=== PATIENT | female | born 2000 | race Caucasian/White ===

== ENCOUNTER 2024-01-15 21:19 | Emergency (ER) | payer SELFPAY ==
[2024-01-15 21:23] VITALS: BP 117/75; PULSE 84; RESP 16; TEMP 36.6; O2SAT 100
[2024-01-15 22:10] LABS: HCG Qualitative Urine. Negative (Negative)
[2024-01-15 22:22] LABS: Add Urine Microscopic? YES; Bilirubin Urine Neg (Negative); Blood Urine 2+ (Negative); Glucose Urine UA Norm (Normal); Ketones Urine Negative (Negative); Leukocyte Esterase Urine Trace (Negative); Nitrate Urine Negative (Negative); Protein Urine Neg (Negative); Specific Gravity, Urine 1.005 (1.005-1.030); Urine Appearance Clear (CLEAR); Urine Color Yellow (Yellow); Urobilinogen Urine Neg (Negative); pH Urine 7 (5-7)
[2024-01-15 22:23] LABS: Add Urine Culture? No; Bacteria Urine TRACE /hpf; RBC Urine 0-4 /hpf (0-2); WBC Urine 0-4 /hpf (0-5)
[2024-01-15 22:54] VITALS: BP 112/61
--- NOTE | 2024-01-15 23:02 | ED_ITS ---
Documented by User: RON Combs 01/15/24 23:09 HPI - Female Genitourinary General: Chief complaint: Urogenital-Female Stated complaint: Possible UTI Time Seen by Provider: 01/15/24 22:49 Source: patient Mode of arrival: ambulatory Limitations: no limitations History of Present Illness: Patient is a 23-year-old female presenting to the emergency department comp laining of dysuria for the past couple weeks. She notes that her dysuria has steadily worsened, and she is now noting some hematuria. She states she recently took her friend to the hospital for symptoms of UTI, and now she is having identical symptoms. She is denying any fevers, abdominal pain, nausea or vomiting, any other symptoms. She denies possibility of . MD elicited complaint: dysuria Onset (ago): week(s) Consistency: progressively worsening Vaginal discharge: none Vaginal bleeding: none Associated symptoms: Deny abdominal pain, headache(s) or nausea Date of Last Menstrual Period: 01/15/24 Review of Systems General: Reports: 10 or more systems reviewed and unremarkable except in HPI and below Const: Denies: fever(s), chills, change in appetite, change in weight or diaphoresis ENMT: Denies: throat pain or hoarseness Card: Denies: chest pain, palpitations or lightheadedness Resp: Denies: dyspnea, productive cough or wheezing GI: Denies: abdominal pain, nausea, vomiting, diarrhea, constipation, bloating, change in stool character or hematochezia : Reports: dysuria and hematuria; Denies: flank pain, difficulty voiding, urinary frequency or urinary urgency Musc: Denies: neck pain or back pain Skin/Breast: Denies: rash or new lesions Neuro: Denies: headache(s) or dizziness PFS ED PFSH: Family History Denies family history of Colon cancer Ovarian cancer Diabetes Heart disease Hyperlipidemia Breast cancer Hypertension Uterine cancer Thyroid disease Stroke Female Reproductive History: Date of last menstrual period: 01/15/24 Physical Exam Const: COMMON NORMALS: no acute distress, average body habitus, patient oriented x3, no limitations, healthy appearing, alert and well nourished GENERAL APPEARANCE: cooperative and comfortable ORIENTATION/CONSCIOUSNESS: Yes awake HENMT: COMMON NORMALS: normocephalic, atraumatic, hearing grossly normal bilaterally, external ears normal, Normal external nose present, Normal nasal mucous membranes and turbinates present and moist oral mucous membranes HEAD & SCALP: normocephalic and atraumatic NOSE: Normal external nose present and Normal nasal mucous membranes and turbinates present EXTERNAL EAR: Yes external ears normal Eye: COMMON NORMALS: Equal, round and reactive pupils present, EOMs intact bilaterally, conjunctivae normal and normal visual carrera by confrontation CONJUNCTIVA: Yes conjunctivae normal PUPIL: Yes Equal, round and reactive pupils present Neck/C-Spine: COMMON NORMALS: full ROM, supple, no meningeal signs and no JVD Resp: COMMON NORMALS: normal respiratory effort, No retractions, No use of accessory muscles and clear to auscultation bilaterally AUSCULTATION: clear to auscultation bilaterally, no crackles, no rales, no rhonchi and no wheezes Cardio: COMMON NORMALS: no JVD, regular rate, regular rhythm, S1 normal heart sound present, S2 normal heart sound present, No gallops present (Cardio), No clicks present (Cardio), No murmurs present (Cardio), No rub (Cardio) and Peripheral pulses 2+ throughout RATE: regular rate RHYTHM: regular rhythm HEART SOUNDS: S1 normal heart sound present and S2 normal heart sound present PERIPHERAL PULSES: Peripheral pulses 2+ throughout GI: COMMON NORMALS: Normal to inspection, nondistended, normoactive bowel sounds present, Soft to palpation, non-tender, No hepatosplenomegaly present and no masses AUSCULTATION: Yes normoactive bowel sounds PALPATION: Yes Soft to palpation, No Guarding due to palpation present (GI), No Rigid due to palpation and Yes No hepatosplenomegaly present RECTAL EXAM: deferred : COMMON NORMALS: Yes no CVA tenderness BLADDER/KIDNEY EXAM: Yes no CVA tenderness Back/Pelvis: COMMON NORMALS: no CVA tenderness Extremity: COMMON NORMALS: normal to inspection and full ROM Neuro: COMMON NORMALS: patient oriented x3, moves all extremities, no focal motor deficits and no sensory deficits noted SENSORIUM/ORIENTATION: Yes alert MENINGEAL SIGNS: Yes no meningeal signs Psych: COMMON NORMALS: mental status grossly normal, cooperative and speech normal SPEECH: Yes normal speech Skin: COMMON NORMALS: no rashes or lesions noted GENERAL SKIN EXAM: no rashes or lesions noted Course Vital Signs: Vital signs: Vital Signs Temperature 97.8 F 01/15/24 21:23 Pulse Rate 84 01/15/24 21:23 Respiratory Rate 14 01/15/24 23:10 Blood Pressure 115/84 01/15/24 23:10 Pulse Oximetry 100 01/15/24 21:23 Oxygen Delivery Me thod Room Air 01/15/24 21:23 MDM - Female Medical Decision Making Patient seen and evaluated for symptoms of urinary tract infection for the past couple weeks. Patient's vitals normal on arrival and remained stable throughout her ED course. Examination unremarkable. UA obtained did show evidence of a early urinary tract infection, possibly a hemorrhagic cystitis. I will treat this accordingly and return precautions were given. Patient agrees with plan. Lab Data Laboratory Results HCG, Qual Negative (Negative) 01/15/24 21:39 Urine Color Yellow (Yellow) 01/15/24 21:39 Urine Appearance Clear (CLEAR) 01/15/24 21:39 Urine pH 7 (5-7) 01/15/24 21:39 Ur Specific [place] 1.005 (1.005-1.030) 01/15/24 21:39 Urine Protein Neg (Negative) 01/15/24 21:39 Urine Glucose (UA) Norm (Normal) 01/15/24 21:39 Urine Ketones Negative (Negative) 01/15/24 21:39 Urine Blood 2+ (Negative) H 01/15/24 21:39 Urine Nitrate Negative (Negative) 01/15/24 21:39 Urine Bilirubin Neg (Negative) 01/15/24 21:39 Urine Urobilinogen Neg mg/dL (Negative) 01/15/24 21:39 Ur Leukocyte Esterase Trace (Negative) H 01/15/24 21:39 Urine RBC 0-4 /hpf (0-2) H 01/15/24 21:39 Urine WBC 0-4 /hpf (0-5) H 01/15/24 21:39 Ur Squamous Epith Cells 5-10 /hpf (0-5) H 01/15/24 21:39 Amorphous Sediment Not Reportable 01/15/24 21:39 Urine Bacteria Trace /hpf (NONE) 01/15/24 21:39 No radiology studies performed this visit Discharge Plan Discharge Patient Disposition: Home Clinical Impression: Urinary tract infection Qualifiers: Urinary tract infection type: acute cystitis Hematuria presence: with hematuria Qualified Code(s): N30.01 - Acute cystitis with hematuria Condition: Stable Prescriptions: New cefdinir 300 mg capsule 300 mg PO BID 10 Days Qty: 20 0RF No Action norethindrone-e.estradiol-iron [Loestrin Fe 10/21 (28-Day)] 1 mg-20 mcg (21)/75 mg (7) tablet 1 tab PO DAILY Qty: 84 0RF Discharge Orders: Discharge ED (Routine); Ordered 01/15/24 Ordered By: Matthew Juarez Referrals: Karol Bergeron MD [Family Provider] - Discharge Diet: Usual diet Discharge Activity: Resume usual activity Patient Instructions: Urinary Tract Infection in Women (ED) Activity Restrictions/Additional Instructions: Cefdinir as prescribed. Plenty of fluids. Please follow-up with primary care as needed. Return with any new or worsening symptoms. Coding Level of Care Code ED Scientific Specialist for Chg Fwd Documented by User: Marquez Frederick DO 01/17/24 06:07 HPI - Female Genitourinary General: Chief complaint: Urogenital-Female Stated complaint: Possible UTI Time Seen by Provider: 01/15/24 22:49 PFS ED PFSH: Family History Denies family history of Colon cancer Ovarian cancer Diabetes Heart disease Hyperlipidemia Breast cancer Hypertension Uterine cancer Thyroid disease Stroke Course Vital Signs: Vital signs: Vital Signs Temperature 97.8 F 01/15/24 21:23 Pulse Rate 84 01/15/24 21:23 Respiratory Rate 14 01/15/24 23:10 Blood Pressure 115/84 01/15/24 23:10 Pulse Oximetry 100 01/15/24 21:23 Oxygen Delivery Me thod Room Air 01/15/24 21:23 MDM - Female Medical Decision Making Patient seen and evaluated for symptoms of urinary tract infection for the past couple weeks. Patient's vitals normal on arrival and remained stable throughout her ED course. Examination unremarkable. UA obtained did show evidence of a early urinary tract infection, possibly a hemorrhagic cystitis. I will treat this accordingly and return precautions were given. Patient agrees with plan. Chart reviewed Lab Data Laboratory Results HCG, Qual Negative (Negative) 01/15/24 21:39 Urine Color Yellow (Yellow) 01/15/24 21:39 Urine Appearance Clear (CLEAR) 01/15/24 21:39 Urine pH 7 (5-7) 01/15/24 21:39 Ur Specific [place] 1.005 (1.005-1.030) 01/15/24 21:39 Urine Protein Neg (Negative) 01/15/24 21:39 Urine Glucose (UA) Norm (Normal) 01/15/24 21:39 Urine Ketones Negative (Negative) 01/15/24 21:39 Urine Blood 2+ (Negative) H 01/15/24 21:39 Urine Nitrate Negative (Negative) 01/15/24 21:39 Urine Bilirubin Neg (Negative) 01/15/24 21:39 Urine Urobilinogen Neg mg/dL (Negative) 01/15/24 21:39 Ur Leukocyte Esterase Trace (Negative) H 01/15/24 21:39 Urine RBC 0-4 /hpf (0-2) H 01/15/24 21:39 Urine WBC 0-4 /hpf (0-5) H 01/15/24 21:39 Ur Squamous Epith Cells 5-10 /hpf (0-5) H 01/15/24 21:39 Amorphous Sediment Not Reportable 01/15/24 21:39 Urine Bacteria Trace /hpf (NONE) 01/15/24 21:39 Discharge Plan Discharge Patient Disposition: Home Clinical Impression: Urinary tract infection Qualifiers: Urinary tract infection type: acute cystitis Hematuria presence: with hematuria Qualified Code(s): N30.01 - Acute cystitis with hematuria Condition: Stable Prescriptions: New cefdinir 300 mg capsule 300 mg PO BID 10 Days Qty: 20 0RF No Action norethindrone-e.estradiol-iron [Loestrin Fe 10/21 (28-Day)] 1 mg-20 mcg (21)/75 mg (7) tablet 1 tab PO DAILY Qty: 84 0RF Discharge Orders: Discharge ED (Routine); Ordered 01/15/24 Ordered By: Matthew Juarez Referrals: Karol Bergeron MD [Family Provider] - Discharge Diet: Usual diet Discharge Activity: Resume usual activity Patient Instructions: Urinary Tract Infection in Women (ED) Activity Restrictions/Additional Instructions: Cefdinir as prescribed. Plenty of fluids. Please follow-up with primary care as needed. Return with any new or worsening symptoms. Coding Level of Care Code ED Scientific Specialist for Rosa Sadler
[2024-01-15] MEDS: cefdinir 300 MG CAPSULE PO (23:04)
[2024-01-15 23:10] VITALS: BP 115/84; RESP 14
== END 2024-01-15 23:15 | disposition home or self-care (01) ==
PROVIDERS: Emergency Medicine; Emergency Provider Physician Assistant; Family Provider Pediatrics Adolescent Medicine
DX: N30.01 Acute cystitis with hematuria (principal)
CPT/HCPCS: 81001; 81025; 99283